=== PATIENT | female | born 1935 ===

== ENCOUNTER 2018-01-01 18:49 | Inpatient (IN) | payer MEDICARE ==
--- NOTE | 2018-01-01 20:17 | ED PDOC ---
HPI: Psych/Substance Abuse Time Seen by Provider: 01/01/18 19:47 Chief Complaint (Nursing): Psychiatric Evaluation Chief Complaint (Provider): Psychiatric Evaluation ED Caveat: Dementia History Per: Patient, Family Onset/Duration Of Symptoms: Days Current Symptoms Are (Timing): Still Present Additional Complaint(s): Tianna Guerrier is an 82 year old female with a past medical history of hypertension, hypercholesterolemia, and osteoarthritis, who is presenting to the ED for evaluation of severe dementia, onset 1 month ago. According to her sister, over the last month, patient has been getting progressively worse with poor memory, inability to sleep, not eating, and losing weight. Patient is completely unaware of these symptoms. Patient only complains of right arm pain secondary to fracture sustained in November. PMD: Christina Ramirez Past Medical History Reviewed: Historical Data, Nursing Documentation, Vital Signs Vital Signs: Last Vital Signs Temp 98.2 F 01/01/18 19:32 Pulse 54 L 01/01/18 19:32 Resp 20 01/01/18 19:32 BP 143/63 01/01/18 19:32 Pulse Ox 97 01/01/18 19:32 - Medical History PMH: HTN, Hypercholesterolemia Other PMH: osteoarthritis - Surgical History Surgical History: No Surg Hx - Family History Family History: States: Unknown Family Hx - Social History Current smoker - smoking cessation education provided: No Alcohol: None Drugs: Denies - Allergies Allergies/Adverse Reactions: Allergies Allergy/AdvReac Type Severity Reaction Status Date / Time No Known Allergies Allergy Verified 01/01/18 19:36 Review of Systems ROS Statement: Except As Marked, All Systems Reviewed And Found Negative Constitutional: Positive for: Weight loss, Other (loss of appetite) Musculoskeletal: Positive for: Arm Pain Neurological: Positive for: Other (memory loss) Physical Exam - Reviewed Nursing Documentation Reviewed: Yes Vital Signs Reviewed: Yes - Physical Exam Appears: Positive for: Well, No Acute Distress Head Exam: Positive for: ATRAUMATIC, NORMOCEPHALIC Skin: Positive for: Warm, Dry Eye Exam: Positive for: EOMI, PERRL ENT: Positive for: Pharynx Is (clear), Other (mucuc membranes moist) Neck: Positive for: Painless ROM, Supple Cardiovascular/Chest: Positive for: Regular Rate, Rhythm, Bradycardia. Negative for: Murmur Respiratory: Positive for: Normal Breath Sounds. Negative for: Wheezing, Respiratory Distress Gastrointestinal/Abdominal: Positive for: Soft. Negative for: Tenderness Back: Positive for: Normal Inspection. Negative for: Muscle Spasm Extremity: Positive for: Other (R humerus: ttp with mild swelling, ROM limited due to pain). Negative for: Pedal Edema Lymphatic: Negative for: Adenopathy Neurologic/Psych: Positive for: Alert, Oriented (x2). Negative for: Motor/ Sensory Deficits - Laboratory Results Result Diagrams: 01/01/18 20:28 01/01/18 20:28 - ECG ECG Rhythm: Positive for: Normal QRS, Normal ST Segment, Sinus Bradycardia O2 Sat by Pulse Oximetry: 97 (RA) Pulse Ox Interpretation: Normal Medical Decision Making Medical Decision Making: Time: 19:56 Impression: Dementia Differentials: electrolyte abnormality, UTI, thyroid disorder, brain mass Plan: --Blood Type and Screen --CT Head --EKG --CMP --Drug Screen --FREE T4 --FT3 --Magnesium --Phosphorous --T3 --T4 --TSH --ED Urine Dipstick --CBC --COAG --CXR Possible hypothyroid, otherwise no clinically significant lab abnormalities. Workup for this can be done outpatient. EXAM: XR Chest, 2 Views CLINICAL HISTORY: 82 years old, female; Signs and symptoms; Other: Altered mental status TECHNIQUE: Frontal and lateral views of the chest. COMPARISON: No relevant prior studies available. FINDINGS: Lungs: Increased density right lung base. Pleural space: No definite pleural effusion. No pneumothorax. Heart: Mild cardiomegaly. Mediastinum: Unremarkable. Bones/joints: No acute fracture. IMPRESSION: 1. Mild cardiomegaly. 2. Right basilar atelectasis vs pneumonia vs elevated diaphragm. Thank you for allowing us to participate in the care of your patient. Dictated and Authenticated by: Teja Jenkins MD 01/01/2018 10:00 PM Eastern Time ([place] & [place]) Pt has no cough, fever, or leukocytosis. Will not treat cxr as pneumonia. Medically stable for psychiatric floor. Scribe Attestation: Documented by Shonda Torrez, acting as a scribe for Petra Ace MD. Provider Scribe Attestation: All medical record entries made by the Scribe were at my direction and personally dictated by me. I have reviewed the chart and agree that the record accurately reflects my personal performance of the history, physical exam, medical decision making, and the department course for this patient. I have also personally directed, reviewed, and agree with the discharge instructions and disposition. Disposition - Clinical Impression Clinical Impression: Dementia with behavioral disturbance - Disposition Disposition Time: 21:00 Condition: STABLE - Pt Status Changed To: Hospital Disposition Of: Inpatient - Admit Certification Admit to Inpatient:: After my assessment, the patient will require hospitalization for at least two midnights. This is because of the severity of symptoms shown, intensity of services needed, and/or the medical risk in this patient being treated as an outpatient. - POA Present On Arrival: Falls Or Trauma (Humerus fracture 1 month ago)
[2018-01-01 20:33] LABS: BASO # 0.1 K/uL (0.0-0.2); BASO % 1.2 % (0.0-2.0); EOS # 0.1 K/uL (0.0-0.7); EOS % 1.5 % (0.0-4.0); HEMOGLOBIN 13.6 g/dL (12.0-16.0); LYMPH # 1.6 K/uL (1.0-4.3); LYMPH % 21.7 % (20.0-40.0); MEAN CELL VOLUME 91.9 fl (81.0-99.0); MEAN CORPUSCULAR HEMOGLOBIN 31.1 pg (27.0-31.0); MEAN CORPUSCULAR HGB CONC 33.8 g/dL (33.0-37.0); MONO # 0.7 K/uL (0.0-0.8); MONO % 9.8 % (0.0-10.0); NEUT # 4.8 K/uL (1.8-7.0); NEUT % 65.8 % (50.0-75.0); RBC 4.38 Mil/uL (3.80-5.20); RED CELL DISTRIBUTION WIDTH 13.8 % (11.5-14.5); WHITE BLOOD COUNT 7.4 K/uL (4.8-10.8)
[2018-01-01 20:43] LABS: INR 1.1 (0.9-1.2); PARTIAL THROMBOPLASTIN TIME 28.1 Seconds (25.6-37.1); PROTHROMBIN TIME 11.7 Seconds (9.8-13.1)
[2018-01-01 20:57] LABS: ALB/GLOB RATIO 1.3 (1.0-2.1); ALBUMIN 4.1 g/dL (3.5-5.0); ALT/SGPT 45 U/L (9-52); AST/SGOT 27 U/L (14-36); BLOOD UREA NITROGEN 18 mg/dl (7-17); CALCIUM 9.8 mg/dL (8.4-10.2); GFR AFRICAN-AMERICAN > 60; GFR NON-AFRICAN AMERICAN > 60
[2018-01-01 21:11] LABS: T4 9.63 ug/dl (5.5-11.0)
--- NOTE | 2018-01-01 21:18 | CT ---
EXAM: CT Head Without Intravenous Contrast CLINICAL HISTORY: 82 years old, female; Signs and symptoms; Altered mental status/memory loss; Other: AMS TECHNIQUE: Axial computed tomography images of the head/brain without intravenous contrast. All CT scans at this facility use one or more dose reduction techniques, viz.: automated exposure control; ma/kV adjustment per patient size (including targeted exams where dose is matched to indication; i.e. head); or iterative reconstruction technique. Coronal and sagittal reformatted images were created and reviewed. COMPARISON: No relevant prior studies available. FINDINGS: Brain: Moderate atrophy. No intracranial hemorrhage. No mass. Minimal decreased attenuation within periventricular white matter. No definite edema. Ventricles: No hydrocephalus. Bones/joints: No acute fracture. Degenerative changes of temporomandibular joints. Soft tissues: Unremarkable. Vasculature: Mild atherosclerotic disease of intracranial arteries. Sinuses: Scattered minimal mucosal thickening of ethmoid sinuses. Mastoid air cells: No mastoid effusion. Orbits: Unremarkable as visualized. IMPRESSION: 1. Nonspecific white matter changes. Acute infarction may be CT occult within first 24 hours. If a focal deficit persists, consider followup CT or MRI for further evaluation. 2. Incidental/non-acute findings are described above.
--- NOTE | 2018-01-01 22:00 | RAD ---
EXAM: XR Chest, 2 Views CLINICAL HISTORY: 82 years old, female; Signs and symptoms; Other: Altered mental status TECHNIQUE: Frontal and lateral views of the chest. COMPARISON: No relevant prior studies available. FINDINGS: Lungs: Increased density right lung base. Pleural space: No definite pleural effusion. No pneumothorax. Heart: Mild cardiomegaly. Mediastinum: Unremarkable. Bones/joints: No acute fracture. IMPRESSION: 1. Mild cardiomegaly. 2. Right basilar atelectasis vs pneumonia vs elevated diaphragm.
[2018-01-01 22:15] LABS: SQUAMOUS EPITHIAL < 1 /hpf (0-5); URINE BACTERIA RARE (<OCC); URINE BILIRUBIN NEGATIVE (NEGATIVE); URINE BLOOD NEGATIVE (NEGATIVE); URINE CLARITY CLEAR (Clear); URINE COLOR STRAW (YELLOW); URINE GLUCOSE (UA) NEG (Normal); URINE LEUKOCYTE ESTERASE SMALL Leu/uL (Negative); URINE PROTEIN NEGATIVE (NEGATIVE); URINE UROBILINOGEN 0.2-1.0 mg/dL (0.2-1.0)
[2018-01-01 22:18] LABS: BARBITURATES, UR NEGATIVE (NEGATIVE)
[2018-01-01 22:21] LABS: BENZODIAZEPINES, UR NEGATIVE (NEGATIVE); OPIATES, UR NEGATIVE (NEGATIVE); PHENCYCLIDINE, UR NEGATIVE (NEGATIVE)
[2018-01-02] MEDS ORDERED: Magnesium Hydroxide Susp 30 ml UD PO PRN (00:18)
[2018-01-02] MEDS ORDERED: Bismuth Subsalicylate 262 mg/15 ml Sus (240 ml) PO PRN (00:18)
[2018-01-02] MEDS ORDERED: Alum-Mag Hydrox-Simethicone Susp (30 mL) PO PRN (00:18)
[2018-01-02] MEDS ORDERED: ALENDRONATE 70 MG TAB PO SCH (01:15)
--- NOTE | 2018-01-02 01:22 | PCM.BM ---
<Kamilah Pham - Last Filed: 01/02/18 01:21> Treatment Plan Problems - Problems identified on initial assessmt Agitated/aggressive behavior Date Initiated: 01/02/18 Time Initiated: 01:21 Assessment reference: NA Status: Active Treatment assets and liabiliti Patient Assests: cooperative, good support system, negotiates basic needs Patient Liabilities: imparied memory - Milieu Protocol Maintain good personal hygiene: daily Encourage regular showers, daily Remind patient to perform daily oral care, daily Assist patient to perform ADL's Conduct patient checks and document Observation sheet: Q15 minutes Maintain personal safety: every shift Educate patient to report safety concerns to staff, every shift Monitor environment for contraband/sharps Medication safety: Monitor for expected outcome, potential side effects: every shift, Assess barriers to learning: every shift, Assess readiness for medication education: every shift <Fidencio Chairez - Last Filed: 01/03/18 17:42> Family Contact Family involvement: Family/SO is involved Family contact: Patient declines to allow family contact at present Family contact name: Pt declines. - Goals for Treatment Patient goals for treatment: Pt refused goals at this time as she feels that she is not sick and has no right being on a psychiatric unit. Pt asked numerous times for this staff member to discharge her. Pt is only oriented to person, but knows that she is in [place], but believes she currently resides in [place]. Pt is not oriented to the fact that she has Dementia and is not oriented to time. Discharge/Continuing Care - Education Needs Education Needs: Patient Medication, Patient Diagnosis/Disease Process, Patient Coping Skills, Patient Placement options, Patient Community resources, Patient Personal Hygiene/Grooming, Patient Aftercare Safety Plan - Discharge Discharge Criteria: Tolerates medication w/o severe side effects, Free of agitation, Normal sleep pattern, Reduction of target symptoms Discharge to:: Home, [facility], With Family <Maris Dickerson - Last Filed: 01/04/18 08:35> - Diagnosis (1) Dementia with behavioral disturbance Status: Acute Interventions: Medication management, Individual and group therapy, Psychoeducation 01/04/18 08:35 <Felicita Myrick - Last Filed: 01/04/18 13:00> Family Contact Family contact: Patient agrees to contact, Family has been contacted by patient , Telephone contact initiated by staff Family contact name: Anel Hodges - sister Family contacted how many times per week?: 2 Family contact comment: [phone] Discharge/Continuing Care - Education Needs Education Needs: Family Medication, Family Diagnosis/Disease Process, Family Coping Skills, Family Placement options, Family Community resources, Family Activities of Daily Living, Family Uses of Medical Equipment, Family Health Practices/Safety, Family Aftercare Safety Plan, Patient Medication, Patient Diagnosis/Disease Process, Patient Coping Skills, Patient Placement options, Patient Community resources, Patient Activities of Daily Living, Patient Uses of Medical Equipment, Patient Health Practices/Safety, Patient Aftercare Safety Plan - Discharge Discharge Criteria: Tolerates medication w/o severe side effects, Free of agitation, Normal sleep pattern, Ability to care for self, Reduction of target symptoms - Additional Comments 01/04/18 12:55 Pt seen and discussed in team meeting. Reason for hospitalization reviewed and discussed. Pt reported she was referred tot [facility] because "I fell walking on the sidewalk." Pt reported she is from [place] and arrive din [place] 2 months ago for "vacation only." Reportedly, pt has been in [place] for 2 years and resides with her sister, Anel at the present time. Pt reported that she would like to return to [place] because that is where her home is. Pt reported that her memory is "good for my age." Pt was only alert to person and place. Pt reported that the date is 05/13/2002 and Marcos (the father) is the current present. Pt denied hx of prior psychiatric treatment. Toy Consultant inquired about group home placement and pt denied. Toy Consultant advised pt that her sister, Anel will be contacted for additional collateral information and pt is agreeable. Consent form signed. Pt's medications reviewed and discussed. Pt's social and medical issues reviewed. Tx plan reviewed and pt agreeable. SW to continue to follow case. - Treatment Team Participation Discussed with Family/SO: No
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
[2018-01-02 08:35] LABS: IRON 67 ug/dL (37-170)
[2018-01-02] MEDS: Pravastatin Sodium 20 MG TAB PO SCH (09:05)
[2018-01-02 09:09] LABS: FERRITIN 40.4 ng/Ml (11.1-264.0)
[2018-01-02] MEDS: HCTZ/Losartan 12.5/50 Tab PO SCH (09:10)
[2018-01-02 09:11] VITALS: O2SAT 52
[2018-01-02 09:17] LABS: % IRON SATURATION 24 % (20-55); TOTAL IRON BINDING CAPACITY 277 ug/dL (250-450)
--- NOTE | 2018-01-02 10:29 | CP.PCM.CON ---
History of Present Illness - History of Present Illness History of Present Illness: Reason for Consult: per hospital protocol HPI: 82 year old female PMH OA, HTN, HLD, dementia, admitted for worsening dementia with behavioral disturbances. Per chart review, pt also stated she was going to jump out the 8th story window. Currently patient is HD stable, NAD. ROS: per HPI all other systems reviewed and negative by me PMSH: OA, HTN, HLD, dementia FH: denies SH: denies tobacco etoh ivdu MEDS: as below NKDA Past Patient History - Past Social History Alcohol: None Drugs: Denies - CARDIAC Hx Cardiac Disorders: Yes (HTN, hypercholesterolemia) - PULMONARY Hx Respiratory Disorders: No - NEUROLOGICAL Hx Neurological Disorder: Yes (dementia) - HEENT Hx HEENT Problems: No - RENAL Hx Chronic Kidney Disease: No - ENDOCRINE/METABOLIC Hx Endocrine Disorders: No - HEMATOLOGICAL/ONCOLOGICAL Hx Blood Disorders: No - INTEGUMENTARY Hx Dermatological Problems: No - MUSCULOSKELETAL/RHEUMATOLOGICAL Hx Musculoskeletal Disorders: Yes (osteoarthritis) Hx Degenerative Joint Disease: Yes Hx Falls: Yes Hx Osteoarthritis: Yes - GENITOURINARY/GYNECOLOGICAL Hx Genitourinary Disorders: No - PSYCHIATRIC Hx Substance Use: No - SURGICAL HISTORY Other/Comment: gallbladder sx - ANESTHESIA Hx Anesthesia: Yes Hx Anesthesia Reactions: No Meds Allergies/Adverse Reactions: Allergies Allergy/AdvReac Type Severity Reaction Status Date / Time No Known Allergies Allergy Verified 01/01/18 19:36 - Medications Medications: Current Medications Acetaminophen (Tylenol 325mg Tab) 650 mg PO Q4 PRN PRN Reason: Pain, moderate (4-7) Al Hydrox/Mg Hydrox/Simethicone (Maalox Plus 30 Ml) 30 ml PO Q4 PRN PRN Reason: Dyspepsia Alendronate Sodium (Fosamax) 70 mg PO QWK SOFÍA Aspirin (Aspirin Chewable) 81 mg PO DAILY SOFÍA Last Admin: 01/02/18 09:06 Dose: 81 mg Bismuth Subsalicylate (Pepto-Bismol) 524 mg PO Q4 PRN PRN Reason: Diarrhea HCTZ/Losartan Potassium (Hyzaar 12.5 Mg-50 Mg) 1 tab PO DAILY SOFÍA Last Admin: 01/02/18 09:10 Dose: 1 tab Lorazepam (Ativan) 0.5 mg PO HS PRN PRN Reason: Insomnia Stop: 01/16/18 00:19 Lorazepam (Ativan) 0.5 mg PO Q6 PRN PRN Reason: Anixety/Agitation Stop: 01/16/18 00:19 Magnesium Hydroxide (Milk Of Magnesia) 30 ml PO HS PRN PRN Reason: Constipation Pravastatin Sodium (Pravachol) 20 mg PO DAILY [facility] Last Admin: 01/02/18 09:05 Dose: 20 mg Primidone (Mysoline) 100 mg PO DAILY [facility] Last Admin: 01/02/18 09:07 Dose: 100 mg Physical Exam - Constitutional Appears: Non-toxic, No Acute Distress - Head Exam Head Exam: ATRAUMATIC, NORMOCEPHALIC - Eye Exam Eye Exam: EOMI, Normal appearance, PERRL - ENT Exam ENT Exam: Mucous Membranes Moist, Normal Oropharynx - Respiratory Exam Respiratory Exam: Clear to Auscultation Bilateral, NORMAL BREATHING PATTERN - Cardiovascular Exam Cardiovascular Exam: RRR, +S1, +S2 - GI/Abdominal Exam GI & Abdominal Exam: Normal Bowel Sounds, Soft. absent: Mass, Organomegaly - Extremities Exam Extremities exam: Positive for: normal capillary refill, pedal pulses present - Back Exam Back exam: absent: rash noted, tenderness - Neurological Exam Neurological exam: Alert, Reflexes Normal - Psychiatric Exam Psychiatric exam: Normal Affect, Normal Mood - Skin Skin Exam: Dry, Warm Results - Vital Signs Recent Vital Signs: Last Vital Signs Temp 97.8 F 01/02/18 06:00 Pulse 51 L 01/02/18 06:00 Resp 18 01/02/18 06:00 BP 139/54 L 01/02/18 09:10 Pulse Ox 52 L 01/02/18 09:10 - Labs Result Diagrams: 01/01/18 20:28 01/01/18 20:28 Labs: Laboratory Results - last 24 hr 01/01/18 01/01/18 01/01/18 20:28 20:28 20:28 WBC 7.4 RBC 4.38 Hgb 13.6 Hct 40.3 MCV 91.9 MCH 31.1 H MCHC 33.8 RDW 13.8 Plt Count 193 MPV 9.0 Neut % (Auto) 65.8 Lymph % (Auto) 21.7 [place] % (Auto) 9.8 Eos % (Auto) 1.5 Baso % (Auto) 1.2 Neut # (Auto) 4.8 Lymph # (Auto) 1.6 [place] # (Auto) 0.7 Eos # (Auto) 0.1 Baso # (Auto) 0.1 PT 11.7 INR 1.1 APTT 28.1 Sodium 137 Potassium 4.1 Chloride 100 Carbon Dioxide 24 Anion Gap 17 BUN 18 H Creatinine 0.8 Est GFR ( Amer) > 60 Est GFR (Non-Af Amer) > 60 Random Glucose 98 Calcium 9.8 Phosphorus 4.1 Magnesium 2.3 Iron TIBC % Saturation Ferritin Total Bilirubin 1.0 AST 27 ALT 45 Alkaline Phosphatase 80 Troponin I 0.0120 Total Protein 7.3 Albumin 4.1 Globulin 3.2 Albumin/Globulin Ratio 1.3 Triglycerides Cholesterol LDL Cholesterol Direct HDL Cholesterol Vitamin B12 Free T4 Thyroxine (T4) 9.63 Total T3 0.970 L TSH 3rd Generation 2.39 Urine Color Urine Clarity Urine pH Ur Specific [place] Urine Protein Urine Glucose (UA) Urine Ketones Urine Blood Urine Nitrate Urine Bilirubin Urine Urobilinogen Ur Leukocyte Esterase Urine RBC (Auto) Urine Microscopic WBC Ur Squamous Epith Cells Urine Bacteria Urine Opiates Screen Urine Methadone Screen Ur Barbiturates Screen Ur Phencyclidine Scrn Ur Amphetamines Screen U Benzodiazepines Scrn U Oth Cocaine Metabols U Cannabinoids Screen Blood Type Antibody Screen BBK History Checked 01/01/18 01/01/18 01/01/18 20:28 20:28 21:58 WBC RBC Hgb Hct MCV MCH MCHC RDW Plt Count MPV Neut % (Auto) Lymph % (Auto) [place] % (Auto) Eos % (Auto) Baso % (Auto) Neut # (Auto) Lymph # (Auto) [place] # (Auto) Eos # (Auto) Baso # (Auto) PT INR APTT Sodium Potassium Chloride Carbon Dioxide Anion Gap BUN Creatinine Est GFR ( Amer) Est GFR (Non-Af Amer) Random Glucose Calcium Phosphorus Magnesium Iron TIBC % Saturation Ferritin Total Bilirubin AST ALT Alkaline Phosphatase Troponin I Total Protein Albumin Globulin Albumin/Globulin Ratio Triglycerides Cholesterol LDL Cholesterol Direct HDL Cholesterol Vitamin B12 Free T4 1.12 Thyroxine (T4) Total T3 TSH 3rd Generation Urine Color Urine Clarity Urine pH Ur Specific [place] Urine Protein Urine Glucose (UA) Urine Ketones Urine Blood Urine Nitrate Urine Bilirubin Urine Urobilinogen Ur Leukocyte Esterase Urine RBC (Auto) Urine Microscopic WBC Ur Squamous Epith Cells Urine Bacteria Urine Opiates Screen Negative Urine Methadone Screen Negative Ur Barbiturates Screen Negative Ur Phencyclidine Scrn Negative Ur Amphetamines Screen Negative U Benzodiazepines Scrn Negative U Oth Cocaine Metabols Negative U Cannabinoids Screen Negative Blood Type A POSITIVE Antibody Screen Negative BBK History Checked No verified bt 01/01/18 01/02/18 01/02/18 22:00 07:05 07:05 WBC RBC Hgb Hct MCV MCH MCHC RDW Plt Count MPV Neut % (Auto) Lymph % (Auto) [place] % (Auto) Eos % (Auto) Baso % (Auto) Neut # (Auto) Lymph # (Auto) [place] # (Auto) Eos # (Auto) Baso # (Auto) PT INR APTT Sodium Potassium Chloride Carbon Dioxide Anion Gap BUN Creatinine Est GFR ( Amer) Est GFR (Non-Af Amer) Random Glucose Calcium Phosphorus Magnesium Iron 67 TIBC 277 % Saturation 24 Ferritin 40.4 Total Bilirubin AST ALT Alkaline Phosphatase Troponin I Total Protein Albumin Globulin Albumin/Globulin Ratio Triglycerides 69 Cholesterol 187 LDL Cholesterol Direct 94 HDL Cholesterol 63 Vitamin B12 267 Free T4 Thyroxine (T4) Total T3 TSH 3rd Generation Urine Color Straw Urine Clarity Clear Urine pH 7.0 Ur Specific [place] 1.009 Urine Protein Negative Urine Glucose (UA) Neg Urine Ketones Negative Urine Blood Negative Urine Nitrate Negative Urine Bilirubin Negative Urine Urobilinogen 0.2-1.0 Ur Leukocyte Esterase Small Urine RBC (Auto) 2 Urine Microscopic WBC 7 H Ur Squamous Epith Cells < 1 Urine Bacteria Rare Urine Opiates Screen Urine Methadone Screen Ur Barbiturates Screen Ur Phencyclidine Scrn Ur Amphetamines Screen U Benzodiazepines Scrn U Oth Cocaine Metabols U Cannabinoids Screen Blood Type Antibody Screen BBK History Checked Assessment & Plan - Assessment and Plan (Free Text) Plan: 82 year old female PMH OA, HTN, HLD, dementia, admitted for worsening dementia with behavioral disturbances. Per chart review, pt also stated she was going to jump out the 8th story window. Currently patient is HD stable, NAD. OA - cont Fosamax HTN - cont hctz/losartan HLD - cont Pravastatin CAD - cont ASA Tremors? - cont Primidone Dementia with behavioral disturbance - management per Psychiatry team
[2018-01-03] MEDS: HCTZ/Losartan 12.5/50 Tab PO SCH (08:16)
[2018-01-03] MEDS: Pravastatin Sodium 20 MG TAB PO SCH (08:17)
--- NOTE | 2018-01-03 17:23 | PCM.PYCHPN ---
Psychiatric Progress Note - Psychiatric Progress Note Patient seen today, length of contact: pt seen and evaluated Patient Chief Complaint: pt reports feeling less anxious and no agitation noted.pt says that she is happy and wants to go home .pt denies talking about jumping from window. Medication Change: No Medical Record Reviewed: Yes Mental Status Examination - Cognitive Function Orientation: Person Memory: Intact Attention: Poor Concentration: Poor Association: WNL Fund of Knowledge: WNL - Mood Mood: Anxious - Affect Affect: Broad - Speech Speech: Slurred - Formal Thought Process Formal Thought Process: No Impairment, Circumstantial - Suicidal Ideation Suicidal Ideation: No - Homicidal Ideation Homicidal Ideation: No Goal/Treatment Plan - Goal/Treatment Plan Need for Continued Stay: Remain at risks for inpatient hospitalization, Discharge may exacerbated symptoms, Severe functional impairment Progress Toward Problem(s) and Goals/Treatment Plan: will continue to monitor for agitation and aggressive behaviors
--- NOTE | 2018-01-04 08:35 | PCM.PYCHPN ---
Psychiatric Progress Note - Psychiatric Progress Note Patient seen today, length of contact: Patient evaluated, case discussed w/ team , chart reviewed Patient Chief Complaint: "I want to go back to [place]." Problems Identified/Issues Discussed: No episodes of aggression or violence. Patient has been in good behavioral control. She is currently calm and cooperative with staff writer. She has evident memory deficits as she does not know the date, president or why she was brought to the hospital. She has poor insight into her dementia and does not believe she needs superintendent container terminal placement. Medication Change: Yes (Start Namenda) Medical Record Reviewed: Yes Consults ordered or reviewed: Medicine consult Mental Status Examination - Cognitive Function Orientation: Person, Place Memory: Impaired Attention: Poor Concentration: Poor Association: WNL Fund of Knowledge: WNL - Mood Mood: Neutral - Affect Affect: Broad - Speech Speech: Appropriate - Formal Thought Process Formal Thought Process: Loosening of associations Psychotic Thoughts and Behaviors: No AH/VH/paranoia/delusions - Suicidal Ideation Suicidal Ideation: No - Homicidal Ideation Homicidal Ideation: No Goal/Treatment Plan - Goal/Treatment Plan Need for Continued Stay: Discharge may exacerbated symptoms, Severe functional impairment Progress Toward Problem(s) and Goals/Treatment Plan: Dementia with behavioral disturbances -Continue Aricept -Start Namenda -Obtain collateral history from patient's sister -Individual and group therapy -Psychoeducation -Medicine consult -Disposition planning - Smoking Cessation Smoking Cessation Initiated: No Reason for not providing: Not indicated
[2018-01-04] MEDS: HCTZ/Losartan 12.5/50 Tab PO SCH (09:27)
[2018-01-04] MEDS: Pravastatin Sodium 20 MG TAB PO SCH (09:28)
--- NOTE | 2018-01-04 16:59 | CARD ---
APPROVED REPORT EKG Measurement Heart [id number] <Conclusion> Sinus bradycardia Otherwise normal ECG
[2018-01-04 17:39] LABS: FOLATE 10.2 ng/mL
[2018-01-05] MEDS: HCTZ/Losartan 12.5/50 Tab PO SCH (08:19)
[2018-01-05] MEDS: Pravastatin Sodium 20 MG TAB PO SCH (08:19)
--- NOTE | 2018-01-05 09:43 | PCM.PYCHPN ---
Psychiatric Progress Note - Psychiatric Progress Note Patient seen today, length of contact: Patient evaluated, case discussed w/ team , chart reviewed Patient Chief Complaint: "I want to go back to [place]." Problems Identified/Issues Discussed: No new events overnight. No episodes of aggression or violence. She is currently calm and cooperative with property underwriter. She continues to have significant memory deficits. She has poor insight into her dementia and does not believe she needs fdc placement. SW to call sister, obtain collateral and discuss disposition. Medication Change: No Medical Record Reviewed: Yes Consults ordered or reviewed: Medicine consult Mental Status Examination - Cognitive Function Orientation: Person, Place Memory: Impaired Attention: Poor Concentration: Poor Association: WNL Fund of Knowledge: WNL Decription of patient's judgement and insights: Poor I/J due to chronic dementia - Mood Mood: Neutral - Affect Affect: Broad - Speech Speech: Appropriate - Formal Thought Process Formal Thought Process: Loosening of associations Psychotic Thoughts and Behaviors: No AH/VH/paranoia/delusions - Suicidal Ideation Suicidal Ideation: No - Homicidal Ideation Homicidal Ideation: No Goal/Treatment Plan - Goal/Treatment Plan Need for Continued Stay: Severe functional impairment Progress Toward Problem(s) and Goals/Treatment Plan: Dementia with behavioral disturbances -Continue Aricept and Aricept -Obtain collateral history from patient's sister and discuss disposition -Individual and group therapy -Psychoeducation -Medicine consult -Disposition planning
[2018-01-06] MEDS: Pravastatin Sodium 20 MG TAB PO SCH (08:24)
[2018-01-06] MEDS: HCTZ/Losartan 12.5/50 Tab PO SCH (08:24)
--- NOTE | 2018-01-06 08:33 | PCM.PYCHPN ---
Psychiatric Progress Note - Psychiatric Progress Note Patient seen today, length of contact: Patient evaluated, case discussed w/ team , chart reviewed Patient Chief Complaint: "I want to go back to [place]." Problems Identified/Issues Discussed: No new events. No episodes of aggression. She is calm and cooperative. She continues to have significant memory deficits. She has poor insight into her dementia and does not believe she needs long-term placement. Family meeting arranged w/ sister to discuss disposition. Medication Change: No Medical Record Reviewed: Yes Consults ordered or reviewed: Medicine consult Mental Status Examination - Cognitive Function Orientation: Person, Place Memory: Impaired Attention: Poor Concentration: Poor Association: WNL Fund of Knowledge: WN Decription of patient's judgement and insights: Poor I/J due to chronic dementia - Mood Mood: Neutral - Affect Affect: Broad - Speech Speech: Appropriate - Formal Thought Process Formal Thought Process: Loosening of associations Psychotic Thoughts and Behaviors: No AH/VH/paranoia/delusions - Suicidal Ideation Suicidal Ideation: No - Homicidal Ideation Homicidal Ideation: No Goal/Treatment Plan - Goal/Treatment Plan Need for Continued Stay: Severe functional impairment Progress Toward Problem(s) and Goals/Treatment Plan: Dementia with behavioral disturbances -Continue Aricept and Aricept -Family meeting pending -Individual and group therapy -Psychoeducation -Medicine consult -Disposition planning
[2018-01-07] MEDS: Pravastatin Sodium 20 MG TAB PO SCH (08:38)
[2018-01-07] MEDS: HCTZ/Losartan 12.5/50 Tab PO SCH (08:39)
--- NOTE | 2018-01-07 08:49 | PCM.PYCHPN ---
Psychiatric Progress Note - Psychiatric Progress Note Patient seen today, length of contact: Patient evaluated, case discussed w/ team , chart reviewed Patient Chief Complaint: "I'm okay." Problems Identified/Issues Discussed: No episodes of agitation. She is calm and cooperative. She continues to have significant memory deficits. She is awaiting PT evaluation to determine if she needs [facility]. Will continue to discuss disposition with the patient. No adverse effects to medications reported. Family meeting took place yesterday. See SW note below. FAMILY MEETING NOTE: Dry Drug Worker met with ps sister and primary customer care representative, Anel Hodges to discuss pt s progress on the unit and discharge planning and after care recommendations. Pt s sister reported she has been taking care of pt for 2 years and pt is progressive getting more disoriented and confused. Pts sister reported that pt wanders off resulting in her getting lost, leaves the stove on from time to time , and becomes argumentative with family when re-directed. Per sister, pt stated just send me to a home when arguing with the sister. Pts sister reported that she is unable to care for pt at home due to her own health issues and the progression of pts illness. Pts sister reported that she has contacted [facility] and was informed that pt must be in the hospital for 2-3 days prior to being accepted ta their facility. Pts sister also reported that she has been working with a social staff worker that used to work at [facility] and was informed that she can be transferred to the facility if accepted. Dry Drug Worker explained to pts that due to lack of power of commercial real estate attorney or healthcare proxy that pt must be agreeable to rehab services and/or termite control technician placement. Dry Drug Worker explained to pts sister that since pt signed herself in that she must verbalize agreement to placement. Pts sister reported that she will talk to pt and explain to her why she must go to rehab. Dry Drug Worker also explained to sister that in order for pt to be referred to rehab services that PT must evaluate pt and make such recommendation. Dry Drug Worker also explained to pts that because pts Medicare is managed by [facility] that an authorization will be required and [place] will have to approve rehab services. Dry Drug Worker then proceeded to tell pts that [facility] would have to be agreeable to accept pt. Additionally, newswriter explained to pts that days 1-20 is paid at 20% and days 21-100 is paid at 80% and pt will be responsible for the 20%. Dry Drug Worker inquired about Medicaid benefits and per sister, pt does not have Medicaid. Dry Drug Worker explained Medicaid application and process to pts sister. Pts sister requested that newswriter speak to the social staff worker thats he has had contact with in the community and explain to her the process for rehab services. Dry Drug Worker spoke with social staff worker (SW), Michelle Roberts who reported that pt was a referral from PMD, Dr. James MD and pts sister is no longer bale to care for pt and pts sister is requesting rehab services. Dry Drug Worker explained to SW that PT must evaluate pt and determine if pt meets criteria for rehab; 2 pt must be agreeable; and 3 pts managed health insurance must approve rehab services and facility. SW verbalized understanding. Dry Drug Worker also explained to SW and pts sister that if pt is not agreeable to rehab and sister refuses to take her back home that pt will be evaluated for competency and possible guardianship will be initiated. Guardianship process explained to pts sister. Pt joined newswriter and sister for family meeting and discharge planning. Purpose for meeting reviewed and explained to pt. Dry Drug Worker explained to pt that she will be evaluated by PT and is rehab recommended she would have to agree or disagree. Dry Drug Worker explained to pt that in order for her to be transferred to a rehab facility she would have to verbalize agreement. Initially, pt refused stating I dont need therapy. Dry Drug Worker explained to pt that if PT services recommend rehab and her sister refuse to take her back home that the hospital would initiate guardianship. Guardianship explained to pt. Dry Drug Worker also reviewed and explained dx to pt. Dry Drug Worker advised pt that she is not a safe discharge back to the community if she were to reside alone because she requires constant observation. Dry Drug Worker explained to pt that due to poor memory she is unable to care for herself. Pt acknowledged that she has memory problems but I can take care of myself. Pt reported thats he would like to return to [place] to her apartment. Pts sister informed pt that she does not have an apartment in [place] and that the family in [place] is not able to take care of her. Pt became tearful and stated If I dont have a choice, Ill go. Pt reported that she feels like a burden to her family stating they just want me in a home and let me . Im being abandoned. Pts sister attempted to explain to pt reason for rehab services, but pt refused to speak to sister. Pt reported to newswriter that she will agree to rehab services but after shes done that she will take a bus and go back to [place]. Medication Change: No Medical Record Reviewed: Yes Consults ordered or reviewed: Medicine consult, Physical Therapy Evaluation Mental Status Examination - Cognitive Function Orientation: Person, Place, Situation Memory: Impaired Attention: Poor Concentration: Poor Association: WNL Fund of Knowledge: [facility] Decription of patient's judgement and insights: Limited I/J due to chronic dementia - Mood Mood: Neutral - Affect Affect: Broad - Speech Speech: Appropriate - Formal Thought Process Formal Thought Process: Loosening of associations Psychotic Thoughts and Behaviors: No AH/VH/paranoia/delusions - Suicidal Ideation Suicidal Ideation: No - Homicidal Ideation Homicidal Ideation: No Goal/Treatment Plan - Goal/Treatment Plan Need for Continued Stay: Severe functional impairment Progress Toward Problem(s) and Goals/Treatment Plan: Dementia with behavioral disturbances -Continue Aricept and Aricept -Physical therapy evaluation -Individual and group therapy -Psychoeducation -Medicine consult -Disposition planning
[2018-01-08] MEDS: Pravastatin Sodium 20 MG TAB PO SCH (08:27)
[2018-01-08] MEDS: HCTZ/Losartan 12.5/50 Tab PO SCH ×2 (08:27→08:36)
--- NOTE | 2018-01-08 09:44 | PCM.PYCHPN ---
Psychiatric Progress Note - Psychiatric Progress Note Patient seen today, length of contact: Patient evaluated, case discussed w/ team , chart reviewed Patient Chief Complaint: "I'm okay." Problems Identified/Issues Discussed: No new events. She is calm and cooperative. She continues to have significant memory deficits. Will continue to discuss disposition with the patient. No adverse effects to medications reported. She reports that her mood is improving. Medication Change: No Medical Record Reviewed: Yes Consults ordered or reviewed: Medicine consult, Physical Therapy Evaluation Mental Status Examination - Cognitive Function Orientation: Person, Place, Situation Memory: Impaired Attention: Poor Concentration: Poor Association: Loose Fund of Knowledge: Poor Decription of patient's judgement and insights: Limited I/J due to chronic dementia - Mood Mood: Neutral - Affect Affect: Broad - Speech Speech: Appropriate - Formal Thought Process Formal Thought Process: Loosening of associations Psychotic Thoughts and Behaviors: No AH/VH/paranoia/delusions - Suicidal Ideation Suicidal Ideation: No - Homicidal Ideation Homicidal Ideation: No Goal/Treatment Plan - Goal/Treatment Plan Need for Continued Stay: Severe functional impairment Progress Toward Problem(s) and Goals/Treatment Plan: Dementia with behavioral disturbances -Continue Aricept and Aricept -Physical therapy evaluation -Individual and group therapy -Psychoeducation -Medicine consult -Disposition planning- patient not safe to be discharged without a supervised environment due to cognitive impairments, will continue to work on safe discharge plan; sister is not agreeable to taking the patient back home Estimated Date of D/C: 01/11/18 - Smoking Cessation Smoking Cessation Initiated: No Reason for not providing: Not indicated
--- NOTE | 2018-01-08 10:43 | CP.PCM.CON ---
History of Present Illness - History of Present Illness History of Present Illness: PT is an 82 year old female admitted to the geropsych unit and referred to the health technical writer for evaluation. ON the DRS, pt scored an overall score of 94. She scored within normal limits on Conceptualization tasks. She scored in the Borderline Range/Mildly Impaired Range on Attention tasks. Pt's Construction, Memory and Initiation skills all fell in the Severely Impaired Range. Overall 94 Attention 32 Scaled Score 7 Percentile 11-18 Initiation 25 Scaled Score 3 Percentile 1 Construction 3 Scaled Score 2 Percenile 1 Conceptualization 33 Scaled Score 8 Percentile 19-28 Memory 10 Scaled Score 2 Percentile 1 Significant deficits were evident. Thank you for this referral, Dr. Lopez Past Patient History - Past Social History Alcohol: None Drugs: Denies - CARDIAC Hx Cardiac Disorders: Yes (HTN, hypercholesterolemia) - PULMONARY Hx Respiratory Disorders: No - NEUROLOGICAL Hx Neurological Disorder: Yes (dementia) - HEENT Hx HEENT Problems: No - RENAL Hx Chronic Kidney Disease: No - ENDOCRINE/METABOLIC Hx Endocrine Disorders: No - HEMATOLOGICAL/ONCOLOGICAL Hx Blood Disorders: No - INTEGUMENTARY Hx Dermatological Problems: No - MUSCULOSKELETAL/RHEUMATOLOGICAL Hx Musculoskeletal Disorders: Yes (osteoarthritis) Hx Degenerative Joint Disease: Yes Hx Falls: Yes Hx Osteoarthritis: Yes - GENITOURINARY/GYNECOLOGICAL Hx Genitourinary Disorders: No - PSYCHIATRIC Hx Substance Use: No - SURGICAL HISTORY Other/Comment: gallbladder sx - ANESTHESIA Hx Anesthesia: Yes Hx Anesthesia Reactions: No Meds Allergies/Adverse Reactions: Allergies Allergy/AdvReac Type Severity Reaction Status Date / Time No Known Allergies Allergy Verified 01/01/18 19:36 - Medications Medications: Current Medications Acetaminophen (Tylenol 325mg Tab) 650 mg PO Q4 PRN PRN Reason: Pain, moderate (4-7) Al Hydrox/Mg Hydrox/Simethicone (Maalox Plus 30 Ml) 30 ml PO Q4 PRN PRN Reason: Dyspepsia Alendronate Sodium (Fosamax) 70 mg PO QWK [facility] Last Admin: 01/05/18 08:19 Dose: 70 mg Aspirin (Aspirin Chewable) 81 mg PO DAILY [facility] Last Admin: 01/08/18 08:27 Dose: 81 mg Bismuth Subsalicylate (Pepto-Bismol) 524 mg PO Q4 PRN PRN Reason: Diarrhea Donepezil HCl (Aricept) 5 mg PO HS [facility] Last Admin: 01/07/18 21:16 Dose: 5 mg HCTZ/Losartan Potassium (Hyzaar 12.5 Mg-50 Mg) 1 tab PO DAILY [facility] Last Admin: 01/08/18 08:36 Dose: Not Given Lorazepam (Ativan) 0.5 mg PO HS PRN PRN Reason: Insomnia Stop: 01/16/18 00:19 Lorazepam (Ativan) 0.5 mg PO Q6 PRN PRN Reason: Anixety/Agitation Stop: 01/16/18 00:19 Magnesium Hydroxide (Milk Of Magnesia) 30 ml PO HS PRN PRN Reason: Constipation Memantine (Namenda) 5 mg PO DAILY [facility] Last Admin: 01/08/18 08:27 Dose: 5 mg Pravastatin Sodium (Pravachol) 20 mg PO DAILY [facility] Last Admin: 01/08/18 08:27 Dose: 20 mg Primidone (Mysoline) 100 mg PO DAILY [facility] Last Admin: 01/08/18 08:27 Dose: 100 mg Results - Vital Signs Recent Vital Signs: Last Vital Signs Temp 98.1 F 01/08/18 05:44 Pulse 60 01/08/18 05:44 Resp 18 01/08/18 05:44 BP 109/50 L 01/08/18 05:44 Pulse Ox 52 L 01/02/18 09:10 - Labs Result Diagrams: 01/01/18 20:28 01/01/18 20:28
[2018-01-09] MEDS: HCTZ/Losartan 12.5/50 Tab PO SCH (08:42)
[2018-01-09] MEDS: Pravastatin Sodium 20 MG TAB PO SCH (08:44)
--- NOTE | 2018-01-09 18:51 | PCM.PYCHPN ---
Psychiatric Progress Note - Psychiatric Progress Note Patient seen today, length of contact: Patient evaluated, case discussed w/ team , chart reviewed Patient Chief Complaint: does not reportedly know why is in hospital denies having issues with memory and or functiion Problems Identified/Issues Discussed: alteratiionin cognition alteration in communication hungarian speaking Medical Problems: per chart Diagnostic Results: per psychiatry per medicine per nursing per social studies teacher per chart DSM 5 Symptoms Update: alteration in cognition reported changes in behavior Medication Change: No Medical Record Reviewed: Yes Consults ordered or reviewed: seen by hospitalist Mental Status Examination - Cognitive Function Orientation: Person, Place, Situation Memory: Impaired Attention: Poor Concentration: Poor Association: Loose Fund of Knowledge: Poor - Mood Mood: Neutral - Affect Affect: Broad - Speech Speech: Appropriate - Formal Thought Process Formal Thought Process: Loosening of associations - Suicidal Ideation Suicidal Ideation: No - Homicidal Ideation Homicidal Ideation: No Goal/Treatment Plan - Goal/Treatment Plan Need for Continued Stay: Severe functional impairment Progress Toward Problem(s) and Goals/Treatment Plan: inpt milieu access to hungarian speaking staff adjust meds per status get up slowly falls precaution not of dr tripathi reviewed pt has poa sister discuss with pt verbally agreeable to plan to remain to discuss with team on Thursday discharge planning in progress Estimated Date of D/C: 01/11/18 - Smoking Cessation Smoking Cessation Initiated: No Reason for not providing: pt defers
[2018-01-10] MEDS: HCTZ/Losartan 12.5/50 Tab PO SCH (08:30)
[2018-01-10] MEDS: Pravastatin Sodium 20 MG TAB PO SCH (08:30)
--- NOTE | 2018-01-10 14:33 | PCM.PYCHPN ---
Psychiatric Progress Note - Psychiatric Progress Note Patient seen today, length of contact: Patient evaluated, case discussed w/ team , chart reviewed Patient Chief Complaint: pt reportedly had visit from sister last evening pt signed 48 hour notice with support of sister (sister is not formal POA per staff), pt reports does not have any problems with memory, denies having any changes in behavior does not recall reported incident prior to admission, pt is seen about unit, staff report pt appears depressed, at times pacing, then seen seated in social area. has been taking medications . states yuki only been in [place] for less two weeks is moving to [place]. Problems Identified/Issues Discussed: alteratiionin cognition alteration in communication wolof speaking Medical Problems: per chart Diagnostic Results: per psychiatry per medicine per nursing per social media specialist per chart DSM 5 Symptoms Update: alteration in cognition per consult of Dr Tripathi ? mood Medication Change: No Medical Record Reviewed: Yes Consults ordered or reviewed: pt seen by hospitalist Mental Status Examination - Cognitive Function Orientation: Person, Place, Situation Memory: Impaired Attention: Poor Concentration: Poor Association: Loose Fund of Knowledge: Poor Decription of patient's judgement and insights: deferred - Mood Mood: Neutral - Affect Affect: Broad - Speech Speech: Appropriate - Formal Thought Process Formal Thought Process: Loosening of associations - Suicidal Ideation Suicidal Ideation: No - Homicidal Ideation Homicidal Ideation: No Goal/Treatment Plan - Goal/Treatment Plan Need for Continued Stay: Severe functional impairment Progress Toward Problem(s) and Goals/Treatment Plan: inpt milieu access to wolof speaking staff adjust meds per status get up slowly falls precaution not of dr tripathi reviewed pt per staff is not formal POA pt has signed a 48 hour notice last evening-team to address in am discuss with pt verbally agreeable to plan to remain to discuss with team on Thursday discharge planning in progress Estimated Date of D/C: 01/11/18 - Smoking Cessation Smoking Cessation Initiated: No
[2018-01-11 05:57] VITALS: BP 120/65; PULSE 65; RESP 20; TEMP 97.7
[2018-01-11] MEDS: Pravastatin Sodium 20 MG TAB PO SCH (08:20)
[2018-01-11] MEDS: HCTZ/Losartan 12.5/50 Tab PO SCH (08:20)
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
--- NOTE | 2018-01-11 11:23 | PCM.BM ---
Treatment Plan Problems - Problems identified on initial assessmt Agitated/aggressive behavior Date Initiated: 01/02/18 Time Initiated: :21 Assessment reference: NA Status: Active Treatment assets and liabiliti Patient Assests: cooperative, good support system, negotiates basic needs Patient Liabilities: imparied memory - Milieu Protocol Maintain good personal hygiene: daily Encourage regular showers, daily Remind patient to perform daily oral care, daily Assist patient to perform ADL's Conduct patient checks and document Observation sheet: Q15 minutes Maintain personal safety: every shift Educate patient to report safety concerns to staff, every shift Monitor environment for contraband/sharps Medication safety: Monitor for expected outcome, potential side effects: every shift, Assess barriers to learning: every shift, Assess readiness for medication education: every shift Milieu Narrative: Dementia with behavioral disturbances -Continue Aricept and Aricept -Discharge to home under the care of her sister; Psychoeducation provided Family Contact Family involvement: Family/SO is involved Family contact: Patient agrees to contact, Family has been contacted by patient , Telephone contact initiated by staff Family contact name: Anel Hodges - sister Family contacted how many times per week?: 2 Family contact comment: [phone]. Poonamkary Griffin. [phone] - Goals for Treatment Patient goals for treatment: Pt refused goals at this time as she feels that she is not sick and has no right being on a psychiatric unit. Pt asked numerous times for this staff member to discharge her. Pt is only oriented to person, but knows that she is in [place], but believes she currently resides in [place]. Pt is not oriented to the fact that she has Dementia and is not oriented to time. Discharge/Continuing Care - Education Needs Education Needs: Family Medication, Family Diagnosis/Disease Process, Family Coping Skills, Family Placement options, Family Community resources, Family Activities of Daily Living, Family Uses of Medical Equipment, Family Health Practices/Safety, Family Aftercare Safety Plan, Patient Medication, Patient Diagnosis/Disease Process, Patient Coping Skills, Patient Placement options, Patient Community resources, Patient Activities of Daily Living, Patient Uses of Medical Equipment, Patient Health Practices/Safety, Patient Personal Hygiene/ Grooming, Patient Aftercare Safety Plan - Discharge Discharge Criteria: Tolerates medication w/o severe side effects, Free of agitation, Normal sleep pattern, Ability to care for self, Reduction of target symptoms Discharge to:: Home, Custodial, With Family - Additional Comments 01/04/18 12:55 Pt seen and discussed in team meeting. Reason for hospitalization reviewed and discussed. Pt reported she was referred tot hospital because "I fell walking on the sidewalk." Pt reported she is from [place] and arrive din [place] 2 months ago for "vacation only." Reportedly, pt has been in [place] for 2 years and resides with her sister, Anel at the present time. Pt reported that she would like to return to [place] because that is where her home is. Pt reported that her memory is "good for my age." Pt was only alert to person and place. Pt reported that the date is 05/13/2002 and Marcos (the father) is the current present. Pt denied hx of prior psychiatric treatment. Water Hauler inquired about fpc placement and pt denied. Water Hauler advised pt that her sister, Anel will be contacted for additional collateral information and pt is agreeable. Consent form signed. Pt's medications reviewed and discussed. Pt's social and medical issues reviewed. Tx plan reviewed and pt agreeable. SW to continue to follow case. - Treatment Team Participation Patient/Family/SO Statement: Dementia with behavioral disturbances -Continue Aricept and Aricept -Discharge to home under the care of her sister; Psychoeducation provided Discussed with Family/SO: No Treatment Plan Review Patient participation: Yes Family/SO/Caregiver participation: No Additional Comments: Pt seen and discussed in team meeting. Pt's progress on the unit reviewed and discussed. Pt reported feeling "much better." Pt informed that she is scheduled for discharge today and returning home with relatives. Pt verbalized agreement and reported that upon return back home she will be "going back to [place]." Pt' s memory remains poor. Psycho-education regarding medication and tx compliance reviewed with pt. Pt informed that her sister, Anel will be picking her up shortly. Pt in agreement. - Problem Agitated/aggressive behavior Date Initiated: 01/01/18 Time Initiated: 01:21 Progress toward outcomes: resolved Date resolved: 01/05/18 - Discharge / Continuing Care Discharge to:: Home, With Family Behavioral Health Services: Home health care, Adult day care, Other (Medication management) Health Needs: Follow up care/test, Doctor appointments, Medications/Rx, Educational, Recreational/Social
== END 2018-01-11 11:05 | disposition home or self-care (01) | DRG 884 ==
LOC: H.ER 18:49 → H.ERHOLD 21:28 → H.STEP 01-02 00:14
PROVIDERS: ADMIT Psychiatry & Neurology Psychiatry; ATTEND Psychiatry & Neurology Psychiatry
PROC: GZ51ZZZ Individual Psychotherapy, Behavioral (ICD-10-PCS; 2018-01-02)
PROC: GZHZZZZ Group Psychotherapy (ICD-10-PCS; principal; 2018-01-06)
DX: F03.91 Unspecified dementia, unspecified severity, with behavioral disturbance (principal); N39.0 Urinary tract infection, site not specified; F43.23 Adjustment disorder with mixed anxiety and depressed mood; E07.9 Disorder of thyroid, unspecified; G93.9 Disorder of brain, unspecified; I11.9 Hypertensive heart disease without heart failure; G47.00 Insomnia, unspecified; M19.90 Unspecified osteoarthritis, unspecified site; M79.601 Pain in right arm; Z87.81 Personal history of (healed) traumatic fracture; E78.00 Pure hypercholesterolemia, unspecified; E78.5 Hyperlipidemia, unspecified